=== PATIENT | male | born 1995 | race Caucasian/White ===

== ENCOUNTER 2017-08-10 10:31 | Day surgery (SDC) | payer OTHER ==
[~2017-08-10] VITALS: Ht 188 cm; Wt 98.1 kg
[~2017-08-10 10:31] MED LIST: CEFAZOLIN 1 GM INJ ONE; LACTATED RINGER'S 1,000 ML IV* SCH; ONDANSETRON 4 MG INJ ONE
[2017-08-10 11:24] VITALS: BP 125/74; PULSE 67; RESP 16; Ht 188 cm; Wt 98.1 kg
[2017-08-10] MEDS ORDERED: IBUP-1542 PO (11:36)
[2017-08-10] MEDS ORDERED: POLYMYXIN/BACITRACIN 1L IRRIG ONE ×2 (12:13→13:26)
[2017-08-10] MEDS ORDERED: BUPIVACAINE 0.25% (MPF) 30 ML INJ ONE (12:13)
--- NOTE | 2017-08-10 12:40 | HPN ---
Date/Time of Note Date/Time of Note DATE: 08/10/17 TIME: 12:40 Interval H&P Admission Note Pt. seen H&P reviewed: No system changes PAXTON SANCHEZ Aug 10, 2017 12:40
[2017-08-10] MEDS ORDERED: PROPOFOL 20 ML ONE ×2 (12:50→14:29)
[2017-08-10] MEDS ORDERED: ROCURONIUM 50 MG INJ ONE ×2 (12:50→13:45)
[2017-08-10] MEDS ORDERED: KETOROLAC 30 MG INJ ONE (13:44)
[2017-08-10] MEDS ORDERED: LIDOCAINE 2% (SDV) 5 ML INJ ONE (13:45)
[2017-08-10] MEDS ORDERED: BUPIVACAINE 0.25% (MPF) 10 ML 10 ML VIAL ONE (14:20)
[2017-08-10] MEDS ORDERED: GLYCOPYRROLATE 0.4 MG INJ ONE (14:29)
[2017-08-10] MEDS ORDERED: NEOSTIGMINE 3 MG/3 ML SYRINGE ONE (14:29)
[2017-08-10] MEDS ORDERED: DEXAMETHASONE 4 MG/ML 1 ML INJ ONE (14:29)
[2017-08-10 14:41] VITALS: BP 107/58; PULSE 49; RESP 18
--- NOTE | 2017-08-10 14:44 | OPPN ---
Date/Time of Note Date/Time of Note DATE: 08/10/17 TIME: 14:42 Operative Report Preoperative Diagnosis Right small finger metacarpal base fracture, intra-articular- fracture subluxation/dislocation of the small finger CMC joint. Postoperative Diagnosis Right small finger metacarpal base fracture, intra-articular- fracture subluxation/dislocation of the small finger CMC joint. Operation/Procedure Performed Open reduction internal fixation of Right small finger metacarpal base fracture , intra-articular with subluxation/dislocation of the small finger CMC joint. Provider: PAXTON SANCHEZ Anesthesia Type: general, other Estimated blood loss: 0 - 10 ml's Transfusion Required: no Specimen: none Grafts/Implants K-wires Complications: no PAXTON SANCHEZ Aug 10, 2017 14:44
[2017-08-10 14:46] VITALS: BP 100/53; PULSE 48; RESP 16
[2017-08-10 14:48] VITALS: BP 100/53; PULSE 48; RESP 16
[2017-08-10 16:01] VITALS: BP 122/80; PULSE 67; RESP 15
--- NOTE | 2017-08-10 16:21 | OPR ---
DATE OF OPERATION: 08/10/2017 SURGEON: Evan Hoang MD ANESTHESIA: General plus local. PREOPERATIVE DIAGNOSIS: Right small finger metacarpal base fracture, intra-articular, with subluxation/dislocation of the small finger carpometacarpal joint. POSTOPERATIVE DIAGNOSIS: Right small finger metacarpal base fracture, intra-articular, with subluxation/dislocation of the small finger carpometacarpal joint. OPERATION PERFORMED: Open reduction, internal fixation of right small finger metacarpal base fracture, intra-articular, with open treatment of the small finger carpometacarpal subluxation/dislocation. OPERATIVE FINDINGS AT SURGERY: Impacted, comminuted intra- articular fracture of the right small finger at the carpometacarpal joint, with shortening of the metacarpal and proximal displacement of the fracture fragment. INDICATION: A 21-year-old male with injury to the right hand who was seen in clinic and diagnosed with a displaced intra-articular fracture of the small finger metacarpal base. We discussed the options and given the shortening of the metacarpal and displacement, patient elected to proceed with surgical intervention, understanding the risks and benefits. OPERATIVE PROCEDURE: Patient was seen in the preoperative area. All further questions were answered. Again, he gave informed consent, understanding the risks and benefits. Patient was taken out of his splint and placed in the supine position. He was placed under general anesthesia, and tourniquet placed on the right upper extremity. Ancef 2 g IV given, and right upper extremity was prepped with ChloraPrep stick and draped in the usual sterile fashion. Esmarch bandage was used to exsanguinate the extremity, and tourniquet inflated at 250 mmHg. Closed reduction of the fracture was unsuccessful, as the fracture was almost 3 weeks old. Decision was made to proceed with open reduction, internal fixation of the right small finger metacarpal base fracture. A longitudinal incision at the metacarpal base was utilized, with sharp dissection carried down through skin and subcutaneous tissue. The extensor tendon to the small finger was retracted, and the periosteum incised on the dorsum of the metacarpal base. The fracture fragments were identified, and the fracture site was debrided with rongeur as well as suction. The wound was irrigated, and the small finger metacarpal shaft was brought into a more anatomic position, using traction on the small finger. Two 0.045 K-wires were driven transversely across the small finger metacarpal into the ring finger metacarpal, providing stability for the metacarpal shaft. There was still displacement of the fracture fragment containing the radial aspect of the joint. This was brought into a more anatomic position, and a 0.035 K-wire was used to secure the smaller fracture fragment. Final x-ray imaging showed appropriate hardware positioning and bony alignment. Wound was again copiously irrigated, and skin closed with 5-0 nylon. Xeroform placed over the wound, and pins were cut short, with pin caps placed. Gauze placed over the wounds, followed by Webril, a short-arm ulnar gutter splint, and bias dressing. Tourniquet deflated after 68 minutes, and patient was awakened from anesthesia. He was taken to the postoperative suite in stable condition and tolerated the procedure well, without complication. SPECIMENS: None. ESTIMATED BLOOD LOSS: 5 cc. SPONGE, INSTRUMENT, NEEDLE COUNTS: Correct. TOURNIQUET TIME: 68 minutes. CONDITION ON DISCHARGE: Stable. Dictated By: Evan Hoang MD /grayson/greta /Document#: [id number] [place]
[2017-08-10] MEDS ORDERED: HYDROCODONE/APAP (5/325) TAB NGT PRN (16:30)
--- NOTE | 2017-08-10 17:03 | RADRPT ---
PROCEDURE: Intraoperative imaging of the right hand with fluoroscopy. CLINICAL INDICATION: Right hand pain. Fracture. Intraoperative. TECHNIQUE: 3 images of the right hand were obtained in the operating room with an image intensifie r. No radiologist was in attendance. Fluoroscopy time is 59 seconds. COMPARISON: No prior study is available for comparison. FINDINGS: Images demonstrate open reduction and internal fixation of the fracture of the base of the fifth met acarpal. IMPRESSION: 1. Intraoperative imaging of the right hand. RPTAT: QQ .Darrell Ayers MD, MD Date Time Electronically viewed and signed by .Darrell Ayers MD, MD on 08/10/2017 17:02 .R/
== END 2017-08-10 16:40 | disposition home or self-care (01) ==
LOC: SDS 10:31
PROVIDERS: ATTEND Orthopaedic Surgery Hand Surgery
DX: S62.316D Displaced fracture of base of fifth metacarpal bone, right hand, subsequent encounter for fracture with routine healing (principal); X58.XXXD Exposure to other specified factors, subsequent encounter
CPT/HCPCS: 26746; 73140; J0690; J1100; J1885; J2405; J2710; J3010; Z7512; Z7610